=== PATIENT | female | born 1995 | race Two or more races ===

== ENCOUNTER 2024-03-22 21:30 | Emergency (ER) | payer MEDICAID, SELFPAY ==
[2024-03-22 21:31] VITALS: PULSE 38
[2024-03-22 21:33] VITALS: BP 97/43; PULSE 55; RESP 17; TEMP 36.9; O2SAT 100; BMI 33.9
--- NOTE | 2024-03-22 21:37 | EKG_ITS ---
[facility] Test Date: 2024-03-22 Pat Name: SAMARA IRVING Department: Room: - Gender: Female Edger Automatic: : 1995 Requested By: ED Temporary Provider Order Number: [id number] Reading MD: ED Temporary Provider Measurements Intervals [place] Rate: 50 P: 20 CT: 134 QRS: 99 QRSD: 94 T: 62 QT: 512 QTc: 470 Interpretive Statements SINUS BRADYCARDIA BORDERLINE RIGHT AXIS DEVIATION [QRS AXIS > 90] LOW QRS VOLTAGE IN PRECORDIAL LEADS [QRS DEFLECTION < 1.0 mV IN CHEST LEADS] INCOMPLETE RIGHT BUNDLE BRANCH BLOCK [90+ ms QRS DURATION, TERMINAL R IN V1/V2, 40+ ms S IN I/aVL/V4/V5/V6] SEPTAL MYOCARDIAL INFARCTION , OF INDETERMINATE AGE [40+ ms Q WAVE IN V1/V2] No previous ECG available for comparison /store/S0/[id number]
[2024-03-22] MEDS: SODIUM CHLORIDE 0.9% 1000 ML 1,000 ML 999 ML IV (21:41)
[2024-03-22 21:42] VITALS: PULSE 52; RESP 17; O2SAT 100
--- NOTE | 2024-03-22 21:42 | PD.EDADULT ---
ED General RME/HPI General Chief complaint: Syncope / Near Syncope Stated complaint: STAT Time Seen by Provider: 03/22/24 21:40 Arrival date/time: 03/22/24 21:30 CC: Near syncope HPI patient presents the ER via EMS with hypotension bradycardia patient states she was sitting on the commode and became profoundly lightheaded dizzy was unable to get off the commode. No prior history of similar events patient states she has heavy menses and is currently on 1 is complaining of mild lower abdominal cramping typical of her menses cramping. Patient denies chest pain shortness of breath or difficulty breathing. Related Data Previous Rx's ?Medication ?Instructions ?Recorded ibuprofen 800 mg tablet 800 mg PO TID PRN pain #30 tabs 07/23/18 ibuprofen 800 mg tablet 800 mg PO TID PRN pain #30 tabs 10/13/21 Allergies Allergy/AdvReac Type Severity Reaction Status Date / Time No Known Allergies Allergy Verified 10/13/21 08:19 Review of Systems Review of Systems Narrative Review of Systems: GEN: No fever, no chills, no weight loss EYES: No discharge, no visual changes, no pain HEENT: No ear pain, no congestion, no sore throat PULM: No shortness of breath, no cough, no congestion CV: No chest pain, no dyspnea on exertion, no palpitations GI: No nausea, no vomiting, no diarrhea, no pain, no constipation : No frequency, no urgency, no dysuria MUSC/SKEL: No joint pain, no back pain SKIN: No rash PSYCH: No hallucinations, no depression HEME/LYMPH: No easy bleeding or bruising tendencies NEURO: No weakness, no headache, + dizziness Past Medical History Past Medical History CARDIAC: Negative Congestive Heart Failure RESPIRATORY: Negative Chronic Obstructive Pulmonary Disease (COPD) GENITOURINARY: Negative Renal Disease ENDOCRINE: Negative Diabetes Mellitus Type 1 or Diabetes Mellitus Type 2 Social History SMOKING STATUS: Never smoker ED Exam Narrative Physical exam: [General: Obese not in any acute distress Head normocephalic HEENT: Eyes: Pupils are PERRLA EOMs intact blanched conjunctiva all other subsystems of HEENT are within acceptable limits Neck is supple nontender Chest equal chest rise nontender to palpation Respiratory: Clear to auscultation no wheezes crackles or rubs CV: Rate rhythm is regular bradycardic, no murmurs rubs or clicks Abdomen is distended secondary to body habitus soft nontender no masses positive bowel sounds all 4 quadrants Back: No CVA tenderness no spinous process tenderness from cervical spine thoracic and lumbar spine Skin: Pale, intact no petechiae rash induration ulceration or crepitus Extremities: Moving all extremity against resistance cap refill less than 2 seconds neurosensory intact Neuro: Awake alert oriented x3 Glascow coma 15 no focal deficits] Course Course Course Narrative: Reexamination of this patient at 2224, the patient is much more awake alert pressure has stabilized heart rate has increased patient now has pink color in her face and recalls all events much brighter affect stating she feels much better. Quality Measures none Orders Category Date Time Status EKG (ED ONLY) *Do not use* NOW Care 03/22/24 21:37 Completed Saline [Insert IV] NOW Care 03/22/24 21:41 Completed EKG (ED Only) Stat Exams 03/22/24 21:37 Draft CBC Stat Lab 03/22/24 21:35 Completed Comprehensive Metabolic Panel Stat Lab 03/22/24 21:35 Completed Type and Screen Stat Lab 03/22/24 21:35 Completed Sodium Chloride 0.9% 1000 ml [Ns] 1,000 ml Med 03/22/24 21:39 Discontinued IV 999 mls/hr Oxygen Delivery PRN RT 03/22/24 21:42 Completed Vital Signs Vital signs: Vital Signs Temperature 98.5 F 03/22/24 21:33 Pulse Rate 55 L 03/22/24 21:33 Respiratory Rate 17 03/22/24 21:33 Blood Pressure 97/43 L 03/22/24 21:33 Pulse Oximetry (%) 100 03/22/24 21:33 Oxygen Delivery Method Oxy Mask 03/22/24 21:33 Oxygen Flow Rate 10 03/22/24 21:33 [facility] Patient data External records reviewed:: [facility] previous records and EMS form Clinical information provided by:: patient and EMS Social determinants that could affect healthcare access:: none Patient has the following chronic illnesses:: None How is presenting disease/condition affected by chronic disease/condition?: uneffected by Evaluation data The following diagnostics were reviewed and interpreted by me:: lab results Lab and/or radiology exams considered but not ordered:: EKG performed at 2146 shows ventricular rate of 50 AL interval 134 QRS of 94 QTc of 486 is sinus bradycardia. CBC shows no acute anemia leukocytosis or thrombocytopenia Interpretation Summary: Syncope Medications Medications considered but not ordered:: None Medication administrations:: Medication Administration History Discontinued Medications Sodium Chloride (Ns) 1,000 mls @ 999 mls/hr IV .Q1H1M ONE Stop: 03/22/24 22:39 Last Infusion: 03/22/24 22:50 Dose: Infused Documented By: Admin: 03/22/24 21:41 Dose: 999 mls/hr Documented By: MATEO None Consultations Consultation(s) initiated? (list below): No Diagnosis Differential Diagnosis ED Complaint MDM: Syncope, vasovagal dehydration anemia Most likely diagnosis given after review of the tests above:: Syncope vasovagal Admission Indicated Admission indicated?: not indicated Explain why admission is indicated or not indicated:: Stable for outpatient follow-up Admission Request Was there a request for admission?: No Disposition Plan Disposition Plan: Discharge Discharge Attestation Discharge Attestation: The patient and all family members were given an opportunity to ask questions and understood the discharge instructions. Discharge instructions specifically effects, indications for sooner follow up or return to the emergency department, and the expected course of current diagnosis. Patient condition: Stable Medical Decision Making Differential Diagnosis Differential Diagnosis: Syncope, vasovagal dehydration anemia Lab Data 03/22/24 21:35 03/22/24 21:35 Labs: Lab Results 03/22/24 Range/Units 21:35 WBC 8.7 (3.6-11.0) Thou/mm3 RBC 4.57 (4.00-5.20) Miln/mm3 Hgb 13.4 (12.0-16.0) g/dL Hct 40.3 (36.0-46.0) % MCV 88 (80-100) fL MCH 29.3 (25.0-35.0) pg MCHC 33.3 (31.0-37.0) g/dl RDW Std Deviation 42.5 (36.4-46.3) fL Plt Count 257 (140-440) Thou/mm3 Neut % (Auto) 53 (37-80) % Lymph % (Auto) 36 (10-50) % Bullock % (Auto) 9 (0-12) % Eos % (Auto) 2 (0-10) % Baso % (Auto) 0 (0-2.5) % Neut # (Auto) 4.6 (1.8-7.7) Thou/mm3 Lymph # (Auto) 3.1 (1.0-4.8) Thou/mm3 Bullock # (Auto) 0.8 (0.0-0.8) Thou/mm3 Eos # (Auto) 0.2 (0.0-0.5) Thou/mm3 Baso # (Auto) 0.0 (0.0-0.2) Thou/mm3 Immature Gran # (Auto) 0.02 H (0.00-0.00) Thou/mm3 Absolute Nucleated RBC 0.00 (0.00-0.00) Thou/mm3 Immature Gran % 0 (0-0) % Nucleated RBC % 0 (0) /100 WBC Sodium 139 (136-145) mMol/L Potassium 3.8 (3.4-5.1) mMol/L Chloride 107 (98-107) mMol/L Carbon Dioxide 23.7 (20.0-31.0) mMol/L Anion Gap 8 (7-16) BUN 12 (9-23) mg/dL Creatinine 0.9 (0.6-1.3) mg/dL Estim Creat Clear Calc 107.3 (>60) mL/min eGFR > 60 (60 - ) See Note BUN/Creatinine Ratio 13 (12-20) Ratio Glucose 106 (74-106) mg/dL Calculated Osmolality 277 (275-295) Calcium 9.7 (8.3-10.6) mg/dL Corrected Calcium 9.7 (8.5-10.1) mg/dL Total Bilirubin 0.8 (0.3-1.2) mg/dL AST 17 (0-34) U/L ALT 15 (10-49) U/L Alkaline Phosphatase 58 (46-116) U/L Total Protein 7.4 (5.7-8.2) gm/dL Albumin 4.4 (3.5-5.0) gm/dL Globulin 3.0 (2.3-3.5) gm/dL Albumin/Globulin Ratio 1.5 (1.2-2.2) Blood Type O Negative Antibody Screen NEGATIVE Blood Bank Wristband ID Yes Discharge Plan Plan Patient Disposition: HOME (Self Care) Patient condition on transfer: Stable Prescriptions/Referrals Prescriptions/Med Rec: No Action ibuprofen 800 mg tablet 800 mg PO TID PRN (Reason: pain) Qty: 30 0RF ibuprofen 800 mg tablet 800 mg PO TID PRN (Reason: pain) Qty: 30 0RF Referrals: Alexa Cisneros MD [Primary Care Provider] - In 1 week Problem List Clinical Impression: Syncope, vasovagal Patient/Caregiver Discharge Instructions Other Activity Instructions:: Rest drink family plenty of fluids Education Materials: ED Dizziness or Syncope ... Print Language: Danish Stand Alone Forms: Debbie Award Info., Work/School Release, Patient Portal Info Letter PA/[employer] Supervising Physician PA/[employer]ANDER Supervising Physician: Gm Butcher ENP
[2024-03-22 22:01] LABS: Basophils % (Auto) 0 % (0-2.5); Eosinophils # (Auto) 0.2 Thou/mm3 (0.0-0.5); Eosinophils % (Auto) 2 % (0-10); Hematocrit 40.3 % (36.0-46.0); Hemoglobin 13.4 g/dL (12.0-16.0); Immature Granulocytes % (Auto) 0 % (0-0); Immature Granulocytes Auto 0.02 Thou/mm3 (0.00-0.00); Lymphocytes # (Auto) 3.1 Thou/mm3 (1.0-4.8); Lymphocytes % (Auto) 36 % (10-50); Mean Corpuscular HGB Conc 33.3 g/dl (31.0-37.0); Mean Corpuscular Hemoglobin 29.3 pg (25.0-35.0); Mean Corpuscular Volume 88 fL (80-100); Monocytes # (Auto) 0.8 Thou/mm3 (0.0-0.8); Monocytes % (Auto) 9 % (0-12); Neutrophils # (Auto) 4.6 Thou/mm3 (1.8-7.7); Neutrophils % (Auto) 53 % (37-80); Nucleated Red Blood Cell % 0 /100 WBC (0); Platelet Count 257 Thou/mm3 (140-440); RDW Standard Deviation 42.5 fL (36.4-46.3); Red Blood Count 4.57 Miln/mm3 (4.00-5.20); White Blood Count 8.7 Thou/mm3 (3.6-11.0)
[2024-03-22 22:15] VITALS: BP 103/68; PULSE 68; RESP 22; O2SAT 98
[2024-03-22 22:20] LABS: Alanine Aminotransferase 15 U/L (10-49); Albumin, Serum 4.4 gm/dL (3.5-5.0); Albumin/Globulin Ratio 1.5 (1.2-2.2); Alkaline Phosphatase 58 U/L (46-116); Anion Gap 8 (7-16); Aspartate Amino Transferase 17 U/L (0-34); BUN/Creatinine Ratio 13 Ratio (12-20); Bilirubin,Total 0.8 mg/dL (0.3-1.2); Blood Urea Nitrogen 12 mg/dL (9-23); Calcium 9.7 mg/dL (8.3-10.6); Calcium (Corrected) 9.7 mg/dL (8.5-10.1); Carbon Dioxide 23.7 mMol/L (20.0-31.0); Chloride 107 mMol/L (98-107); Creatinine (Component) 0.9 mg/dL (0.6-1.3); Estimated Creatinine Clearance 107.3 mL/min (>60); Glucose 106 mg/dL (74-106); Osmolality,Calculated 277 (275-295); Potassium 3.8 mMol/L (3.4-5.1); Sodium 139 mMol/L (136-145); Total Protein 7.4 gm/dL (5.7-8.2); eGFR > 60 See Note
[2024-03-22 23:26] VITALS: PULSE 65; RESP 16; O2SAT 99
== END 2024-03-22 23:27 | disposition home or self-care (01) ==
PROVIDERS: Registered Nurse General Practice; Emergency Provider Emergency Medicine; PCP Pediatrics
DX: R55 Syncope and collapse (principal); R00.1 Bradycardia, unspecified; I45.10 Unspecified right bundle-branch block
CPT/HCPCS: 36415; 80053; 80307; 81001; 81025; 85025; 86850; 86900; 86901; 87086; 93005; 96360; 99284; J7030